=== PATIENT | male | born 1940 | race Caucasian/White ===

== ENCOUNTER → 2017-04-15 | Outpatient (CLI) | payer OTHER ==
[~2017-04-15] MED LIST: ASPI81EC PO; CARV25 PO; CHOL10002 PO; CIPR500 PO; DOXA4 PO; Hair, Skin & N1 EACH PO; LIDO5TP TOP; LOSA25 PO; Lipitor20 MG PO; MULVITA PO; PANT40 PO; ROSU5 PO; TAMS.4ER PO; TELM20 PO; TRIHYD253A PO; VIT1CAPS12 PO
== END | disposition home or self-care (01) ==
LOC: LAB 16:15
DX: C67.2 Malignant neoplasm of lateral wall of bladder (principal)
CPT/HCPCS: 88108

== ENCOUNTER 2017-09-06 12:38 | Emergency (ER) | payer OTHER ==
[~2017-09-06] VITALS: Ht 177.8 cm; Wt 86.2 kg
[2017-09-06 13:16] LABS: BASOPHILS ABSOLUTE AUTO 0.02 K/mm3 (0.00-0.23); BASOPHILS PERCENT AUTO 0 % (0-2); EOSINOPHILS ABSOLUTE AUTO 0.14 K/mm3 (0.00-0.68); EOSINOPHILS PERCENT AUTO 2 % (0-6); Hematocrit 42.8 % (37.0-53.0); Hemoglobin 14.2 g/dL (13.5-17.5); IMMATURE GRAN ABSOLUTE AUTO 0.02 K/mm3 (0.00-0.10); IMMATURE GRAN PERCENT AUTO 0 % (0-1); LYMPHOCYTES ABSOLUTE AUTO 1.31 K/mm3 (0.84-5.20); LYMPHOCYTES PERCENT AUTO 14 % (21-46); MONOCYTES ABSOLUTE AUTO 0.76 K/mm3 (0.16-1.47); MONOCYTES PERCENT AUTO 8 % (4-13); Mean Corpuscular HGB 32.8 pg (26.0-34.0); Mean Corpuscular HGB Conc 33.2 g/dL (31.5-36.5); Mean Corpuscular Volume 99 fL (80-100); Mean Platelet Volume 11.1 fL (9.1-12.4); NEUTROPHILS ABSOLUTE AUTO 7.01 K/mm3 (1.96-9.15); NEUTROPHILS PERCENT AUTO 76 % (41-73); Platelet Count 157 K/mm3 (150-400); RDW Coefficient Variation 13.2 % (11.7-14.2); RDW Standard Deviation 48.5 fL (35.1-46.3); Red Blood Cell Count 4.33 M/mm3 (4.30-5.90); White Blood Cell Count 9.26 K/mm3 (4.00-11.30)
[2017-09-06 13:40] LABS: Albumin, Blood 3.8 g/dL (3.4-5.0); Albumin/Globulin Ratio 1.1 (0.8-1.8); Bilirubin, Total 0.6 mg/dL (0.1-1.0); Bun/Creatinine Ratio 13.8 (12.0-20.0); Calcium, Blood 8.5 mg/dL (8.5-10.1); Creatinine, Blood 1.3 mg/dL (0.60-1.20); Globulin, Blood 3.5 g/dL (2.2-4.0); Potassium, Blood 3.8 mmol/L (3.5-5.5); Total Protein, Blood 7.3 g/dL (6.4-8.2)
[2017-09-06 14:07] LABS: Creatine Kinase MB 2.3 ng/mL (0.0-3.6); Creatine Kinase MB Index 0.5 (0.0-4.0)
== END 2017-09-06 14:40 | disposition home or self-care (01) ==
LOC: ER 12:38
PROVIDERS: Physician Assistant
DX: M79.1 Myalgia (principal); I10 Essential (primary) hypertension; Z79.899 Other long term (current) drug therapy; Z87.891 Personal history of nicotine dependence
CPT/HCPCS: 36415; 80053; 82550; 82553; 85025; 99283; J7030

== ENCOUNTER → 2017-10-15 | Outpatient (CLI) | payer OTHER | END | disposition home or self-care (01) | LOC: LAB SHORT 07:49 → PLD 07:49 | DX: D03.61 Melanoma in situ of right upper limb, including shoulder (principal) | CPT/HCPCS: 88305 ==

== ENCOUNTER 2019-05-06 11:54 | Day surgery (SDC) | payer OTHER, MEDICARE ==
[~2019-05-06] VITALS: Ht 177.8 cm; Wt 85.6 kg
--- NOTE | 2019-05-06 12:54 | NUR ---
Ambulatory in Day Surgery History, Chart, Medications and Allergies reviewed before start of procedure.Lungs clear T/O to Auscultation. Patient confirms NPO status and agrees with scheduled surgery. Pre-Op teaching done. Pt verbalizes understanding. Patient States Post-Procedure ride home has been arranged.
--- NOTE | 2019-05-06 13:50 | NUR ---
05/06/19 1350 Nila Prabhakar [facility] CASE WITH DR. CONNER. SEE ANETHESIA RECORD FOR CARE
--- NOTE | 2019-05-06 14:00 | NUR ---
PT INTO STEP. AT BEDSIDE. VSS. TOLERTING ORAL FLUIDS.
--- NOTE | 2019-05-06 14:01 | NUR ---
DR. DOE CONSULTING WITH PT AND PT'S FAMILY.
--- NOTE | 2019-05-06 14:27 | NUR ---
Discharge instructions reviewed with patient. Patient verbalizes understanding. Copy given to patient to take home. Discharged via wheelchair to private car for ride home.
== END 2019-05-06 14:19 | disposition home or self-care (01) ==
LOC: ORSCMMR 11:54 → ORD 13:30 → ORSCMMR 13:30 → ORD 14:15 → ORSCMMR 14:19
PROVIDERS: Internal Medicine Gastroenterology
PROC: 0DB68ZX Excision of Stomach, Via Natural or Artificial Opening Endoscopic, Diagnostic (ICD-10-PCS; principal; 2019-05-06 13:30)
DX: K30 Functional dyspepsia (principal); K31.7 Polyp of stomach and duodenum; R10.13 Epigastric pain; I10 Essential (primary) hypertension; K20.9 Esophagitis, unspecified; G47.33 Obstructive sleep apnea (adult) (pediatric); E11.9 Type 2 diabetes mellitus without complications; Z87.891 Personal history of nicotine dependence; Z79.899 Other long term (current) drug therapy
CPT/HCPCS: 82947; 88305; 88341; 88342; J2704; J7120

== ENCOUNTER 2020-06-02 13:08 | Day surgery (SDC) | payer OTHER | END 2020-06-02 22:42 | disposition home or self-care (01) | LOC: US 13:08 → EDSTATUS 14:00 → US 14:00 | DX: C34.82 Malignant neoplasm of overlapping sites of left bronchus and lung (principal); J90 Pleural effusion, not elsewhere classified | CPT/HCPCS: 32555; 71045 ==

== ENCOUNTER → 2021-06-27 | Outpatient (CLI) | payer OTHER | END | disposition home or self-care (01) | LOC: LAB 11:51 → LAB SHORT 11:51 | DX: C44.612 Basal cell carcinoma of skin of right upper limb, including shoulder (principal) | CPT/HCPCS: 88305 ==

== ENCOUNTER → 2021-07-25 | Outpatient (CLI) | payer OTHER | END | disposition home or self-care (01) | LOC: LAB SHORT 15:09 → PLD 15:09 | DX: D03.59 Melanoma in situ of other part of trunk (principal) | CPT/HCPCS: 88305 ==

== ENCOUNTER 2021-08-20 13:09 | Emergency (ER) | payer OTHER ==
[~2021-08-20] VITALS: Ht 177.8 cm; Wt 81.7 kg
[2021-08-20 13:45] LABS: BASOPHILS ABSOLUTE AUTO 0.04 K/mm3 (0.00-0.23); BASOPHILS PERCENT AUTO 0 % (0-2); EOSINOPHILS ABSOLUTE AUTO 0.48 K/mm3 (0.00-0.68); EOSINOPHILS PERCENT AUTO 5 % (0-6); Hematocrit 44.1 % (37.0-53.0); IMMATURE GRAN ABSOLUTE AUTO 0.02 K/mm3 (0.00-0.10); IMMATURE GRAN PERCENT AUTO 0 % (0-1); LYMPHOCYTES ABSOLUTE AUTO 1.89 K/mm3 (0.84-5.20); LYMPHOCYTES PERCENT AUTO 20 % (21-46); MONOCYTES ABSOLUTE AUTO 1.03 K/mm3 (0.16-1.47); MONOCYTES PERCENT AUTO 11 % (4-13); Mean Corpuscular HGB 31.8 pg (26.0-34.0); Mean Corpuscular Volume 93 fL (80-100); Mean Platelet Volume 10.4 fL (9.1-12.4); NEUTROPHILS ABSOLUTE AUTO 6.23 K/mm3 (1.96-9.15); NEUTROPHILS PERCENT AUTO 64 % (41-73); Platelet Count 292 K/mm3 (150-400); RDW Coefficient Variation 12.7 % (11.7-14.2); RDW Standard Deviation 43.8 fL (35.1-46.3); Red Blood Cell Count 4.72 M/mm3 (4.30-5.90); White Blood Cell Count 9.69 K/mm3 (4.00-11.30)
[2021-08-20 14:00] LABS: Albumin, Blood 3.3 g/dL (3.4-5.0); Albumin/Globulin Ratio 0.6 (0.8-1.8); Bilirubin, Total 0.7 mg/dL (0.1-1.0); Bun/Creatinine Ratio 15.5 (12.0-20.0); Calcium, Blood 9.7 mg/dL (8.5-10.1); Creatinine, Blood 0.84 mg/dL (0.60-1.20); Globulin, Blood 5.2 g/dL (2.2-4.0); Potassium, Blood 3.8 mmol/L (3.5-5.5); Total Protein, Blood 8.5 g/dL (6.4-8.2)
[2021-08-20] MEDS ORDERED: MAGNESIUM PO (16:19)
[2021-08-20] MEDS ORDERED: METO100 PO (16:20)
[2021-08-20] MEDS ORDERED: METO25ER PO (16:21)
== END 2021-08-20 17:23 | disposition home or self-care (01) ==
LOC: ER 13:09
PROVIDERS: Physician Assistant
DX: R06.02 Shortness of breath (principal); I10 Essential (primary) hypertension; Z53.29 Procedure and treatment not carried out because of patient's decision for other reasons; Z79.899 Other long term (current) drug therapy; Z87.891 Personal history of nicotine dependence
CPT/HCPCS: 36415; 71046; 80053; 83880; 84484; 85025; 93005; 93010; 99285-25

== ENCOUNTER 2022-12-28 11:50 | Inpatient (IN) | payer OTHER ==
[~2022-12-28] VITALS: Ht 177.8 cm; Wt 78.6 kg
[~2022-12-28 11:50] MED LIST changes: +MAGNESIUM PO; +METO100 PO; +METO25ER PO
[2022-12-28 12:52] LABS: BASOPHILS ABSOLUTE AUTO 0.04 K/mm3 (0.00-0.23); BASOPHILS PERCENT AUTO 0 % (0-2); EOSINOPHILS ABSOLUTE AUTO 0.15 K/mm3 (0.00-0.68); EOSINOPHILS PERCENT AUTO 1 % (0-6); Hematocrit 45.4 % (37.0-53.0); Hemoglobin 15.2 g/dL (13.5-17.5); IMMATURE GRAN ABSOLUTE AUTO 0.27 K/mm3 (0.00-0.10); IMMATURE GRAN PERCENT AUTO 2 % (0-1); LYMPHOCYTES ABSOLUTE AUTO 2.23 K/mm3 (0.84-5.20); LYMPHOCYTES PERCENT AUTO 18 % (21-46); MONOCYTES ABSOLUTE AUTO 0.99 K/mm3 (0.16-1.47); MONOCYTES PERCENT AUTO 8 % (4-13); Mean Corpuscular HGB 32.4 pg (26.0-34.0); Mean Corpuscular HGB Conc 33.5 g/dL (31.5-36.5); Mean Corpuscular Volume 97 fL (80-100); Mean Platelet Volume 10.6 fL (9.1-12.4); NEUTROPHILS PERCENT AUTO 70 % (41-73); Platelet Count 144 K/mm3 (150-400); RDW Coefficient Variation 13.3 % (11.7-14.2); RDW Standard Deviation 47.3 fL (35.1-46.3); Red Blood Cell Count 4.69 M/mm3 (4.30-5.90); White Blood Cell Count 12.38 K/mm3 (4.00-11.30)
[2022-12-28 13:03] LABS: Albumin, Blood 3.2 g/dL (3.4-5.0); Albumin/Globulin Ratio 0.8 (0.8-1.8); Bilirubin, Total 0.9 mg/dL (0.1-1.0); Bun/Creatinine Ratio 17.3 (12.0-20.0); Calcium, Blood 8.8 mg/dL (8.5-10.1); Creatinine, Blood 1.04 mg/dL (0.60-1.20); Globulin, Blood 3.8 g/dL (2.2-4.0); Potassium, Blood 4.2 mmol/L (3.5-5.5)
[2022-12-28] MEDS ORDERED: DECADRON4 M1 PO (14:06)
[2022-12-28] MEDS ORDERED: GUAI600T33 PO (14:07)
[2022-12-28] MEDS ORDERED: TAMS.4ER PO (14:07)
[2022-12-28] MEDS ORDERED: PRESERVISION A1 EAC1 PO (14:08)
[2022-12-28] MEDS ORDERED: SENN187 PO (14:09)
[2022-12-28 14:27] LABS: Source, Urine Clean Catch
[2022-12-28 14:35] LABS: Appearance, Urine Clear (Clear); Bilirubin, Urine Neg (Neg); Blood, Urine Neg (Neg); Color, Urine Yellow (P-Yellow); Glucose Qualitative, Urine Neg (Neg); Ketones, Urine 1+ (Neg); Leukocyte Esterase, Urine Neg (Neg); Nitrite, Urine Neg (Neg); Protein, Urine 1+ (Neg); Specific Gravity, Urine 1.025 (1.003-1.022); Urobilinogen, Urine 1+ (Normal)
[2022-12-28 14:41] LABS: Base Excess Venous -0.6 mmol/L; Bicarbonate Venous 23.1 mmol/L (24.0-30.0); PCO2 Venous 47.5 mmHg (38-42); pH Blood Venous 7.33 (7.34-7.37)
[2022-12-28 14:59] LABS: U Amphetamine Screen Not Detected; U Barbituate Screen Not Detected; U Benzodiazapine Screen Not Detected; U Buprenorphine Screen Not Detected; U Cannabinoids Screen Not Detected; U Cocaine Screen Not Detected; U Methadone Screen Not Detected; U Methamphetamine Screen Not Detected; U Opiates Screen Not Detected; U Oxycodone Screen Not Detected; U Phencyclidine Screen Not Detected; U Propoxyphene Screen Not Detected
[2022-12-28 18:45] VITALS: BP 131/75
[2022-12-28 19:47] VITALS: BP 118/95
[2022-12-29] VITALS (8 sets, daily range): BP systolic 103–154; BP diastolic 55–95
[2022-12-29 04:44] LABS: BASOPHILS ABSOLUTE AUTO 0.04 K/mm3 (0.00-0.23); BASOPHILS PERCENT AUTO 0 % (0-2); EOSINOPHILS ABSOLUTE AUTO 0.12 K/mm3 (0.00-0.68); EOSINOPHILS PERCENT AUTO 1 % (0-6); Hematocrit 41.4 % (37.0-53.0); IMMATURE GRAN ABSOLUTE AUTO 0.15 K/mm3 (0.00-0.10); IMMATURE GRAN PERCENT AUTO 1 % (0-1); LYMPHOCYTES ABSOLUTE AUTO 1.49 K/mm3 (0.84-5.20); LYMPHOCYTES PERCENT AUTO 13 % (21-46); MONOCYTES ABSOLUTE AUTO 0.91 K/mm3 (0.16-1.47); MONOCYTES PERCENT AUTO 8 % (4-13); Mean Corpuscular HGB 32.7 pg (26.0-34.0); Mean Corpuscular HGB Conc 33.8 g/dL (31.5-36.5); Mean Corpuscular Volume 97 fL (80-100); NEUTROPHILS ABSOLUTE AUTO 8.77 K/mm3 (1.96-9.15); NEUTROPHILS PERCENT AUTO 77 % (41-73); Platelet Count 124 K/mm3 (150-400); RDW Coefficient Variation 13.4 % (11.7-14.2); RDW Standard Deviation 47.5 fL (35.1-46.3); Red Blood Cell Count 4.28 M/mm3 (4.30-5.90); White Blood Cell Count 11.48 K/mm3 (4.00-11.30)
[2022-12-29 05:03] LABS: Albumin, Blood 2.8 g/dL (3.4-5.0); Albumin/Globulin Ratio 0.8 (0.8-1.8); Bilirubin, Total 0.7 mg/dL (0.1-1.0); Bun/Creatinine Ratio 19.5 (12.0-20.0); Calcium, Blood 8.4 mg/dL (8.5-10.1); Creatinine, Blood 0.92 mg/dL (0.60-1.20); Globulin, Blood 3.5 g/dL (2.2-4.0); Potassium, Blood 3.8 mmol/L (3.5-5.5); Total Protein, Blood 6.3 g/dL (6.4-8.2)
--- NOTE | 2022-12-29 06:54 | NUR ---
SHIFT SUMMARY PATIENT RESTING IN BED THROUGHOUT SHIFT, 1 LARGE INCONTINENT EPISODE WITH LARGE BM AND URINE. PATIENT PULLED IV OUT, NEW IV REPLACED. NORMAL SALINE RUNNING. BLADDER SCAN 246 THIS MORNING. EDEMA IN RIGHT LEG MORE THAN LEFT WITH PURPLE COLOR TO RIGHT LEG. PATIENT C/O BEING COLD. WARM BLANKET PROVIDED. BED ALARM [employer] REPRESENTATIVE LIGHT IN REACH. PATIENT DOES NOT CALL.
--- NOTE | 2022-12-29 09:00 | NUR ---
pt laying in bed pretty sleepy, will open eyes with touch, but immed returns to sleep, not able to follow commands at this time, lungs clear on home 02 baseline 02, no cough noted, hrr, right leg has edema to thigh, iv to rac, site is clear and patent, infusing ns as ordered, site is clear and patent, btx4, abd flat soft nontender, voids without diff, skin c/w/d, maew, lory, call light in reach.
--- NOTE | 2022-12-29 15:40 | NUR ---
pt insisting he needed to get up to use the bathroom, wanted to go into the bathroom, as soon as we started to move him out of bed he is shaking all over, and was a two person assist to the bsc, was difficult to get him to even pivot, he was breathing hard but did have a bm, and voided 200mls and had a bm, returned iv to ns at 125mls/hr, linen changed, brief chaged. family in room with him, returned to sleep, call light in reach.
--- NOTE | 2022-12-29 18:11 | NUR ---
pt had a ct scan, bolus of one liter of L.R., got him up to bsc to void, he had a stool, and voided about 200mls. was difficult transfer to bs, breathing became labored with any exertion, sleeps when left undisturbed and refused all meals today. call light in reach.
--- NOTE | 2022-12-29 21:55 | NUR ---
TELE PLACED ON PATIENT AT 2135. PT HAD 8 BT VTACH WITH PEAK AT 180 AND IS NOW SUSTAINING IN THE 105-115 RANGE. MD INFORMED. PATIENT ASSYMPTOMATIC. MD TO COME VISIT PATIENT FOR POSSIBLE TRANSFER TO PCU. WILL CONTINUE CLOSE MONITORING
--- NOTE | 2022-12-29 22:15 | NUR ---
TELEPHONE REPORT RECIEVED FROM MADISON CLAY PT ARRIVED TO ICU 6 VIA HOSPITAL BED WITH RN AND PCT. MOVED TO ICU BED, PT IS PLEASANTLY CONFUSED. FOLLOWS ALL COMMANDS, PIV X1 WITH NS INFUSING. PT ASKS IF HE IS AT THE AIRPORT. REORIENTED. PT SLEPT MOST OF THE SHIFT, ASSISTED WITH REPOSITIONING EVERY 2 HOURS AND PRN. PT DENIES PAIN, C/O BEING COLD, WARM BLANKET GIVEN. MESSAGE LEFT FOR PT'S VIA PHONE TO NOTIFY HER OF TRANSFER TO HIGHER LEVEL OF CARE AND CLARIFY PLAN/GOALS OF CARE. REQUESTED RETURN CALL TO ICU, PHONE NUMBER PROVIDED. SR WITH MAYCO PVC'S NOTED WITH A FEW SELF LIMITING RUNS OF VTACH. MAGNESIUM AND POTASSIUM REPLACED. POC ONGOING.
[2022-12-29 22:42] LABS: Bun/Creatinine Ratio 14.5 (12.0-20.0); Calcium, Blood 8.2 mg/dL (8.5-10.1); Creatinine, Blood 0.83 mg/dL (0.60-1.20); Magnesium, Blood 1.6 mg/dL (1.6-2.4); Potassium, Blood 3.9 mmol/L (3.5-5.5)
[2022-12-30] VITALS (56 sets, daily range): BP systolic 114–175; BP diastolic 44–156
[2022-12-30 01:34] LABS: Albumin, Blood 2.5 g/dL (3.4-5.0); Albumin/Globulin Ratio 0.8 (0.8-1.8); Bilirubin, Total 0.6 mg/dL (0.1-1.0); Bun/Creatinine Ratio 13.1 (12.0-20.0); Calcium, Blood 7.9 mg/dL (8.5-10.1); Creatinine, Blood 0.84 mg/dL (0.60-1.20); Globulin, Blood 3.1 g/dL (2.2-4.0); Potassium, Blood 3.2 mmol/L (3.5-5.5); Total Protein, Blood 5.6 g/dL (6.4-8.2)
--- NOTE | 2022-12-30 07:03 | NUR ---
LATE CHART NOTE FROM RN TAYLER KOHLER (PRIMARY RN FOR PATIENT WHILE HE WAS ON MEDICAL FLOOR. CALL PLACED TO NIGHT HOSPITALIST BRIEFLY AFTER PATIENT WAS PLACED ON TELEMETRY. RATE SUSTAINING 105-115 WITH AN IMMEDIATE RUN OF VTACH TO 180. PATIENT 02 NEEDS INCREASING FROM BASELINE OF 2L TO 3L AND STILL DROPPING INTO HIGH 80'S SOON HE FELL ASLEEP. DISCUSSION OF LONG DVT WELL SEVERAL PULMONARY EMBOLI FOUND ON CT. CURRENTLY, THE PATIENT ONLY HAD LOVENOX FOR DVT PROPHALAXIS. STAT LABS WERE ORDERED AND TRANSFER ORDER GIVEN TO SEND PATIENT TO PCU
--- NOTE | 2022-12-30 07:15 | NUR ---
CARE ASSUMPTION DURING BEDSIDE SHIFT REPORT WITH NINFA RN THE PT IS SLEEPING COMFORTABLY IN BED ON 1L NC. MONITOR SHOWING SR 90'S W PVC'S AND R BBB. PT'S BP WNL AND STABLE. PT AWAKENING TO VOICE AND COMMUNICATING W STAFF. PT IS CONFUSED BUT CAN STATE HIS NAME AND . PT KNOWS THAT HE IS IN A HOSPITAL BUT HE IS CONFUSED ABOUT WHAT YEAR IT IS OR WHY HE IS IN THE HOSPITAL. UPDAT DR. ORDOÑEZ CONTACTED REGARDING FLUID RESCUSITATION, FLUIDS DC'D.
--- NOTE | 2022-12-30 13:27 | NUR ---
pt minimally responsive, increased secretions. starting to decline. [facility]. Pt placed on comfort care and hospitice plan stated.
--- NOTE | 2022-12-30 17:26 | NUR ---
SHIFT SUMMARY; PATIENT ARRIVES FROM ICU-6 VIA BED TO [facility] FLOOR ROOM 302. ROMYT ON COMFORT CARE. [place] CATHETER IN PLACE TO DOWN DRAIN. HE IS ORIENTED TO SELF ON ARRIVAL. HAS PLEASANT AFFECT AND WIDE AWAKE. HE ASKS FOR A CUP OF COLD WATER AND IS ABLE TO HOLD IT AND DRINK FROM A STRAW. KAHLILTENT REFUSES EVENING MEAL. TRAY IS PLACED IN PANTRY INCASE ROMYT CHANGES HIS MIND. CURRENTLY HE IS SITTING WITH HOB AT 45 DEGREES AND LOOKING OUT THE WINDOW.
--- NOTE | 2022-12-31 06:21 | NUR ---
SHIFT SUMMARY\ PT VERY ACTIVE IN THE BEGINNING OF SHIFT. FREQUENTLY ATTEMPTING TO GET OUT OF BED AND GRABBING [place] TUBING. PRN IV ATIVAN GIVEN, PT WASNT ATTEMPTING TO GET OOB FREQUENTLY AND WAS MUCH MORE REDIRECTABLE AND CALM. PT WAS ABLE TO CARRY A GOOD CONVERSATION AND WATCH TV FOR SOME TIME. HE THEN GOT ANXIOUS AND ATTEMPTED TO GET OOB AGAIN NOT TOO MUCH LONGER. PO ATIVAN GIVEN WITH SIMILAR EFFECT, HOWEVER AT THIS TIME PT JUST WANTED TO SLEEP BUT WOULD KEEP PULLING OXYGEN OFF AND APPEARED SHORT OF BREATH. PRN ROXINOL GIVEN WITH GOOD EFFECT. PT HAS BEEN ABLE TO SLEEP THE REMAINDER OF THE NIGHT.
[2022-12-31 16:33] LABS: Influenza A, PCR NEGATIVE (NEGATIVE); Influenza B, PCR NEGATIVE (NEGATIVE); Resp Syncytial Virus, PCR NEGATIVE (NEGATIVE); SARS-Cov-2 (COVID-19) PCR, MMC NEGATIVE (NEGATIVE)
--- NOTE | 2022-12-31 17:48 | NUR ---
PATIENT GOING TO [facility]. [facility] SPENT MUCH OF AFTERNOON WITH THIS PATIENT AND HIS SPOUSE. PATIENT PROVIDED WITH ROXONAL 10MG AT 1700. REPORT TO WARREN WALLACE PRIOR TO PATIENT LEAVING. AT THIS TIME STILL WAITING FOR [facility] TO COME PROJECT M[facility].
--- NOTE | 2022-12-31 18:34 | NUR ---
Bistorl in to eval patient. Review of medication iwtristian RN. End of shift more alert. nursing worked on secretions today still coarse but some removal goal is home tonight on hospice.
== END 2022-12-31 19:07 | disposition hospice, inpatient (51) | DRG 91 ==
LOC: ER 11:50 → MEDS 11:51 → ICUE 12-29 22:38 → MEDS 12-30 16:24
PROVIDERS: Family Medicine; Internal Medicine; Nurse Practitioner Acute Care; Student in an Organized Health Care Education/Training Program; ADMIT Family Medicine
DX: G92.9 Unspecified toxic encephalopathy (principal); I26.99 Other pulmonary embolism without acute cor pulmonale; J96.01 Acute respiratory failure with hypoxia; R65.10 Systemic inflammatory response syndrome (SIRS) of non-infectious origin without acute organ dysfunction; E87.20 Acidosis, unspecified; I82.401 Acute embolism and thrombosis of unspecified deep veins of right lower extremity; Z51.5 Encounter for palliative care; Z66 Do not resuscitate; Z20.822 Contact with and (suspected) exposure to COVID-19; F03.90 Unspecified dementia, unspecified severity, without behavioral disturbance, psychotic disturbance, mood disturbance, and anxiety; K70.30 Alcoholic cirrhosis of liver without ascites; N40.0 Benign prostatic hyperplasia without lower urinary tract symptoms; G47.33 Obstructive sleep apnea (adult) (pediatric); E86.0 Dehydration; I10 Essential (primary) hypertension; E11.51 Type 2 diabetes mellitus with diabetic peripheral angiopathy without gangrene; E78.5 Hyperlipidemia, unspecified; I45.10 Unspecified right bundle-branch block; M48.00 Spinal stenosis, site unspecified; Z85.51 Personal history of malignant neoplasm of bladder; Z90.49 Acquired absence of other specified parts of digestive tract; Z98.890 Other specified postprocedural states; Z87.891 Personal history of nicotine dependence; Z85.118 Personal history of other malignant neoplasm of bronchus and lung; Z23 Encounter for immunization
CPT/HCPCS: 0241U; 36415; 51701; 51702; 51798; 70450; 71045; 71260; 80048; 80053; 82140; 82803; 82947; 83605; 83735; 83880; 84145; 84484; 85025; 87040; 87077; 87086; 87186; 93005; 93010; 93971; 94760; 94762; 96361; 96365; 96366; 96367; 96372; 99285-25; A9270; G0378; J0456; J0692; J0696; J1650; J2060; J3475; J3480; J7030; J7040; J7050; J7120; Q9967